=== PATIENT | male | born 1950 | race Caucasian/White ===

== ENCOUNTER 2017-11-16 13:52 | Observation (INO) ==
[2017-11-16] MEDS ORDERED: SALINE FLUSH 10ml SYRINGE IVF PRN (14:00)
[2017-11-16] MEDS ORDERED: NS 1,000 ML IV ONE (15:03)
[2017-11-16] MEDS ORDERED: VANCOMYCIN - PHARMACY CONSULT MC ONE (15:03)
--- NOTE | 2017-11-16 15:08 | Emergency Department Report ---
Weakness HPI - General Chief complaint: Syncope Stated complaint: diabetic issues Time Seen by Provider: 11/16/17 13:59 Source: patient, EMS, RN notes reviewed, old records reviewed Mode of arrival: EMS Limitations: no limitations - History of Present Illness HPI Narrative: 67yo man presented to the ER by EMS today for evaluation of weakness. Pt was at [employer] to shop. As he was leaving [employer], he was unsteady in the scooter , so an employee followed him out to his vehicle. Pt was found sitting in the shade beside his vehicle, too weak to climb into his truck. Pt is a diabetic; has a h/o hypotension 2/2 BP meds. Pt thinks he might have accidentally taken a BP med. He gave himself 6 tabs of glucose, thinking that his BG was low. EMS arrived and pt refused treatment initially. After several steps, pt was finally loaded into the rig and transported to the ER for further eval. Pt has not had anything to eat yet today. Complaint: generalized weakness Onset (ago): hour(s) Duration: constant Location: generalized Migration: none - Related Data Home Medications Medication Instructions Recorded Confirmed Neurontin (gabapentin) 300 mg 600 mg PO QID cap 11/12/17 11/16/17 capsule Ferrous Sulfate [Iron] 650 mg PO DAILY 11/16/17 11/16/17 Insulin Aspart [Novolog Flexpen] 6 - 10 unit SQ TID 11/16/17 11/16/17 Previous Rx's Medication Instructions Recorded Lantus (insulin glargine) 100 18 unit SQ QAM #3 vial 11/12/17 unit/mL SQ Pravastatin Sodium [Pravachol] 40 mg PO HS #0 11/17/17 Allergies Allergy/AdvReac Type Severity Reaction Status Date / Time No Known Allergies Allergy Verified 11/16/17 14:36 Review of Systems All systems: reviewed and negative except as stated Constitutional: Reports: as per HPI, weakness. Denies: fever, chills, weight change, night sweats PFSH Patient Stated Medical History Diabetes Mellitus Type 1 Yes Blood Disorders Yes: MULTIPLE MYOLOMA Clinic Medical History (Last Updated 11/12/17 @ 09:00 by Bryon Perez MD) Diabetic peripheral neuropathy associated with type 2 diabetes mellitus ( Chronic Medical) Severe. Multiple myeloma (Suspected Medical) Diabetes mellitus type 2, uncontrolled, without complications (Chronic Medical ~ 1992) Poor control, but overinsulinized during the night. Will need more bolus insulin and less basal. Proliferative diabetic retinopathy of both eyes without macular edema associated with type 2 diabetes mellitus (Chronic Medical) Hyperlipidemia LDL goal <100 (Chronic Medical) On statin. Hypertension (Chronic Medical) Stopped using lisinopril due to hypotension with syncope. Anemia (Chronic Medical) Surgical History: *Gastric Bypass Surgery - 2009. *Colonoscopy with polypectomy and EGD- 2012 Family History: Family History (Last Updated 11/12/17 @ 08:34 by Tiana Kaur [facility]) Brother Cancer - Social History Smoking status: Former smoker second hand exposure: Yes Substance use type: does not use Alcohol intake: never Alcohol intake frequency: does not drink Current occupational status: retired Physical Exam - Limitations Limitations: no limitations - General General appearance: alert, in no apparent distress, obese - Head Head exam: atraumatic, normocephalic, normal inspection - Eye Eye exam: Present: normal appearance, PERRL, EOMI. Absent: scleral icterus - ENT ENT exam: Present: normal exam, normal oropharynx, mucous membranes moist, normal external ear exam - Neck Neck exam: Present: normal inspection, full ROM, trachea midline. Absent: tenderness, lymphadenopathy - Chest Chest inspection: Present: normal inspection, symmetric chest wall rise. Absent : tenderness, rash - Respiratory Respiratory exam: Present: wheezes. Absent: normal lung sounds bilaterally, respiratory distress, stridor, prolonged expiratory phase, crackles - Cardiovascular Cardiovascular exam: Present: regular rate, normal rhythm, normal heart sounds. Absent: rubs, gallop, clicks - Abdominal Exam Abdominal exam: Present: soft, normal bowel sounds. Absent: distention, tenderness, guarding, rebound, rigidity - Extremities Exam Extremities exam: Present: normal inspection, full ROM, normal capillary refill. Absent: tenderness, pedal edema - Skin Skin exam: Present: warm, dry, intact, diaphoresis. Absent: rash - Neurological Exam Neurological exam: Present: alert, oriented X3, CN II-XII intact, reflexes normal, other (Pt appears confused; possibly slow on exam; EMS confirmed that pt has been acting similarly since they arrived.) - Psychiatric Psychiatric exam: Present: agitated, anxious Course - Consultations Consultation #1: Hospitalist: Pt accepted for obs admission for BG abns and elevated lactate with orthostatic hypotension. Time: 16:00 Vital Signs Pulse Rate 72 11/16/17 13:58 Respiratory Rate 20 11/16/17 13:58 Blood Pressure 90/55 11/16/17 13:58 Pulse Oximetry 97 11/16/17 13:58 Pulse Rate 85 11/16/17 14:53 Respiratory Rate 20 11/16/17 14:43 Blood Pressure 123/63 11/16/17 14:55 Pulse Oximetry 94 11/16/17 14:45 Weakness - Differential Diagnosis Differential diagnosis: Likely: anemia, hypoglycemia, hypothyroidism, dehydration - Medical Records Attestation: I reviewed the patient's medical records. - Lab Data Attestation: I reviewed the patient's lab results. Result diagrams: 11/17/17 03:40 11/17/17 03:40 Lab Results 11/16/17 11/16/17 11/16/17 Range/Units 14:16 14:16 14:23 WBC 8.2 (4.5-11.0) T/MM3 RBC 4.19 L (4.50-5.90) M/MM3 Hgb 11.1 L (13.5-17.5) GM/DL Hct 34.3 L (41-53) % MCV 81.9 (80-100) UM3 MCH 26.5 (26-34) UUG MCHC 32.4 (31-37) GM/DL RDW Std Deviation 39.3 (36.9-50.2) FL Plt Count 403 H (130-400) T/MM3 MPV 9.7 (9.4-12.4) UM3 Immature Gran % (Auto) 0.1 (0.0-0.5) % Neut % (Auto) 65.9 (33-66) % Lymph % (Auto) 23.0 (23-45) % Williams % (Auto) 9.3 H (0-9.0) % Eos % (Auto) 1.0 (0-4) % Baso % (Auto) 0.7 (0-2) % Neut # (Auto) 5.4 (1.8-7.7) T/MM3 Lymph # (Auto) 1.9 (1-4.8) T/MM3 Williams # (Auto) 0.8 (0-0.8) T/MM3 Eos # (Auto) 0.1 (0-0.5) T/MM3 Baso # (Auto) 0.1 (0-0.2) T/MM3 Abs Immat Gran (auto) 0.01 (0.00-0.03) T/MM3 Turbidity < 20 (0-20) Sodium 139 (136-146) MEQ/L Potassium 4.1 (3.6-5) MEQ/L Chloride 99 (98-107) MEQ/L Carbon Dioxide 21 L (22-30) MEQ/L Anion Gap 19 H (5-15) meq/L BUN 20.0 (9-20) MG/DL Creatinine 1.0 (0.8-1.5) mg/dL GFR Calculation 75 BUN/Creatinine Ratio 20 (6-26) RATIO Glucose 323 H (75-110) MG/DL Glucometer 247 (65-110) mg/dL Calculated Osmolality 283 H (261-280) MOSM/KG Calcium 9.6 (8.4-10.2) MG/DL Total Bilirubin 0.70 (0.20-1.30) MG/DL Icterus Index < 2 (0-7) AST 26 (17-59) U/L ALT 30 (1-50) U/L Alkaline Phosphatase 121 (38-126) U/L Troponin I < 0.012 (0-0.12) ng/ml Total Protein 7.9 (6.3-8.2) g/dL Albumin 4.4 (3.5-5.0) g/dL Globulin 3.5 (2.4-3.6) G/DL Albumin/Globulin Ratio 1.3 (1.1-2.2) RATIO Plasma Lactate 5.8 H* (0.6-2.2) MMOL/L Specimen Hemolysis < 15 (0-25) - Radiology Data Attestation: I reviewed the patient's radiology results. CXR: No acute CT pathology. - EKG Data EKG #1 EKG attestation: Yes: I reviewed and interpreted this EKG. EKG shows normal: sinus rhythm, axis, QRS complexes, ST-T waves Rate: normal Coker/QRS: RBBB Disposition Clinical Impression: Syncope due to orthostatic hypotension Sepsis Qualifiers: Sepsis type: sepsis due to unspecified organism Qualified Code(s): A41.9 - Sepsis, unspecified organism Disposition: 02 [place] [facility] [place] Care Condition: Stable - Seen By: physician
[2017-11-16 16:56] VITALS: BMI 28.0
[2017-11-16] MEDS ORDERED: SENNA + DOCUSATE TABLET PO PRN (17:00)
[2017-11-16] MEDS ORDERED: ONDANSETRON 4 MG/2 ML INJECTION IVP PRN (17:00)
[2017-11-16] MEDS ORDERED: ACETAMINOPHEN 325 MG TABLET PO PRN (17:00)
[2017-11-16] MEDS ORDERED: GLUCOSE ORAL GEL 40% 37.5gm PO PRN (17:04)
[2017-11-16] MEDS ORDERED: INSULIN ASPART 100unit/ml INJECTION SQ PRN (17:04)
[2017-11-16] MEDS ORDERED: NON-FORMULARY MEDICATION 1 EACH EACH (Insulin Aspart [Novolog Flexpen] 0 UNIT) SQ SCH (17:30)
[2017-11-16] MEDS: NS 1,000 ML IV SCH (17:50)
[2017-11-16] MEDS: INSULIN ASPART 100unit/ml INJECTION SQ SCH (18:06)
--- NOTE | 2017-11-16 18:08 | History & Physical Report ---
History of Present Illness Date: 11/16/17 Chief complaint: orthostatic hypotension, generalized weakness HPI: Luis Enrique Curtis is a pleasant 67-year-old male patient of Dr. Fountain who was brought to [facility] ED today, 11/16/17, via EMS for evaluation of generalized weakness. He reports that this morning he took his scheduled insulin including Lantus 18 units as well as 10 units of Novolog as directed by Dr. Bryon Perez, endocrinology, but then forgot to eat breakfast. Prior to taking his medications, his fasting blood sugar was reportedly elevated at 538. He then went to [facility] where he checked his blood sugar again and found that it was still around 400 so he took an additional 5 units of Novolog around 0900. As he was leaving [facility] an employee noticed that he appeared unsteady on his scooter and followed him out to his truck where he was found sitting in the shade, on the ground, beside his truck, reportedly too weak to climb into his truck. Luis Enrique reports that he thought maybe his blood sugar was too low so he took 6-7 glucose tabs while sitting in the parking lot. EMS was contacted and initially Luis Enrique refused treatment but then consented after receiving apple juice. After further discussion, he reports that he thinks that he might have messed up his medications this morning as he took them in the dark while he was only half-awake around 0600 this morning. He believes that he might have taken 2 of his metformin tablets instead of only 1 as well as possibly have taken one of his old blood pressure medications by accident. He reports that about 3 months ago he had a syncopal episode while in [place] for business. He reports that he was hospitalized in [place] at that time and had "all the tests" which reportedly did not reveal any abnormalities with his heart. He was subsequently taken off his two blood pressure medications at that time. He is unable to recall what the medications were. He also reports that while he was in [place] his labs were concerning for possible multiple myeloma. He was seen by Dr. 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 He continues to follow with Dr. Lewis for multiple myeloma but is not currently requiring treatment. Upon arrival to the ED, his blood pressure was 90/55. He was given 1L NS. Labs revealed stable WBC at 8.2 with chronic anemia (Hgb 11.1) and thrombocytosis (Plt 403). Electrolytes were unremarkable with the exception of hyperglycemia (Glu 323). Troponin <0.012. Lactate was significantly elevated at 5.8 with a gap of 19 and CO2 of 21. Blood pressure improved with IV fluids. Orthostatic blood pressures shortly after arrival to the ED were positive (supine 113/71, sitting 99/61, standing 77/51). Due to his orthostatic hypotension, hyperglycemia and elevated lactate, Dr. Mendoza was consulted and he was admitted into observation status for further evaluation , close monitoring and IV fluids. His length of stay is not expected to exceed more than 2 over nights. Prior to discharge from the ED, he was given vancomycin IV x 1 dose for empiric treatment of any possible infection resulting in his elevated lactate. Blood pressure also significantly improved following 1L bolus of NS at 150/87 while in the ED. On exam, he is seen immediately upon his arrival to his room. He is very pleasant and actively talking on his phone with his brother. He denies any recent illness, fevers, chills, chest pain, shortness of breath, abdominal pain , nausea, vomiting or dysuria. He reports that he feels much better and believes that his medication errors caused his symptoms. He is eager for discharge home. Repeat orthostatic vital signs were negative. Review of Systems All systems PM: 10-point ROS was reviewed, no additional remarkable complaints except - Constitutional Constitutional: Present: weakness (generalized). Absent: anorexia, chills, fatigue, fever(s), headache(s) - EEMTT Eyes: Absent: diplopia, loss of vision, photophobia Ears: Absent: ear pain Balance: Absent: falling to one side Nose: Present: allergies. Absent: nosebleeds Mouth/Throat: Present: dry mouth. Absent: sore throat, changes in swallowing - Cardiovascular Cardiovascular: Absent: chest pain, palpitations, syncope, dyspnea on exertion, orthopnea, edema, heart murmur Rhythm: Present: regular rhythm Vascular: Absent: pallor of an extermity, pedal edema, unilateral swelling - Respiratory Respiratory: Absent: cough, dyspnea, hemoptysis, dyspnea on exertion, wheezing, pain on inspiration - Gastrointestinal Gastrointestinal: Absent: abdominal pain, constipation, diarrhea, hematochezia, melena, nausea, vomiting - Genitourinary Genitourinary: Present: nocturia. Absent: dysuria, flank pain, hematuria - Musculoskeletal Musculoskeletal: Present: muscle weakness (generalized). Absent: abnormal gait , back pain, deformity, limited range of motion - Integumentary/Breasts Integumentary: Absent: rash - Neurological Neurological: Present: sensory deficit (bilateral lower extremities), weakness. Absent: abnormal gait, abnormal speech, confusion, focal weakness, headache(s) , vertigo - Psychiatric Psychiatric: Absent: anxiety, depression - Endocrine Endocrine: Absent: heat intolerance, palpitations - Hematologic/Lymphatic Hematologic/Lymphatic: Absent: easy bruising - Allergic/Immunologic Allergic/Immunologic: Present: seasonal rhinorrhea Past Medical History Medical History: Medical History (Last Updated 11/16/17 @ 18:10 by BARBI Blair) Diabetic peripheral neuropathy associated with type 2 diabetes mellitus (Chronic ) Severe. Multiple myeloma (Suspected) Diabetes mellitus type 2, uncontrolled, without complications (Chronic) Onset Date: ~1992 Poor control, but overinsulinized during the night. Will need more bolus insulin and less basal. Proliferative diabetic retinopathy of both eyes without macular edema associated with type 2 diabetes mellitus (Chronic) Hyperlipidemia LDL goal <100 (Chronic) On statin. Hypertension (Chronic) Stopped using lisinopril due to hypotension with syncope. Anemia (Chronic) Surgical History: *Gastric Bypass Surgery - 2009. *Colonoscopy with polypectomy and EGD- 2012. *Bone marrow biopsy - 10/23/17. Family History: Family History Brother , age 58, pancreatic cancer. Mother , age 88, "old age". Father , age 82, kidney infection. Family History: As Above - Social History Smoking status: Former smoker (quit in 1989) Packs per day: 3 Packs-years: 60 Substance use type: does not use Alcohol intake frequency: does not drink Housing: house Household members: family (brother) Current occupational status: retired (tank truck driver) Does patient use chewing tobacco?: Yes (daily) Current residence: Apartment/Private Home Social history: PCP - Dr. Fountain. Endo - Dr. Perez. Onc - Dr. Lewis. Medications Home Medications Medication Instructions Recorded Confirmed Type Foramet (metformin ER) 1,000 mg 1,000 mg PO BID tab 10/21/17 11/16/17 History tablet,extended release 24hr Lantus (insulin glargine) 100 18 unit SQ QAM #3 vial 11/12/17 11/16/17 Rx unit/mL SQ Neurontin (gabapentin) 300 mg 600 mg PO QID cap 11/12/17 11/16/17 History capsule Pravachol (pravastatin) 40 mg 40 mg PO DAILY 11/12/17 11/16/17 History tablet Ferrous Sulfate [Iron] 650 mg PO DAILY 11/16/17 11/16/17 History Insulin Aspart [Novolog Flexpen] 6 - 10 unit SQ TID 11/16/17 11/16/17 History Allergies Allergy/AdvReac Type Severity Reaction Status Date / Time No Known Allergies Allergy Verified 11/16/17 14:36 Exam Vital Signs: Temperature 96.3 F L 11/16/17 16:47 Pulse Rate 89 11/16/17 17:23 Respiratory Rate 20 11/16/17 16:47 Blood Pressure 155/71 H 11/16/17 17:23 Pulse Oximetry 100 11/16/17 16:47 Telemetry Rhythm: Sinus Rhythm Height/Weight/BMI: Height 6 ft Weight 207 lb 3.752 oz Body Mass Index 28.0 Comments: Patient sitting on bed, talking on phone with brother. Very pleasant. - Constitutional Present: no acute distress, well nourished, well developed, cooperative - Routine HEENT Exam Head: Present: normocephalic, atraumatic Eye: Present: PERRL. Absent: conjunctival icterus ENT: Present: mucous membranes moist, oropharynx clear - Routine Neck Exam Present: supple, full ROM, trachea midline - Routine Chest/Breast/Axilla Exam Chest wall: Absent: pacemaker - Routine Respiratory Exam Present: CTA bilaterally. Absent: respiratory distress, wheezes - Routine Cardiovascular Exam Present: RRR, S1, S2 - Routine Abdominal Exam Present: soft, normoactive bowel sounds, non distended - Routine Extremities Exam Present: no edema, non tender, full ROM, pulses intact - Routine Back/Spine/Pelvis Exam Back/Spine: Present: full ROM. Absent: vertebral tenderness - Routine Skin Exam Present: intact, dry, warm Comments: Afebrile. - Routine Neurological Exam Present: alert, oriented X3, CN II-XII intact, sensory deficit (bilateral lower extremities secondary to peripheral neuropathy.), moving all extremities, hearing grossly intact, normal speech - Routine Psychiatric Exam Present: normal affect, cooperative Results - Labs CBC & Chem 7: 11/16/17 14:16 11/16/17 14:16 Assessment and Plan Assessment and Plan: Assessment: Orthostatic hypotension. Lactic acidosis, present on admission (5.8), without signs of infection. Diabetes mellitus, type 2, uncontrolled. Diabetic peripheral neuropathy. Multiple myeloma. Hyperlipidemia. Hypertension. Chronic anemia. Chronic thrombocytosis. Plan - 11/16/17: Admit to observation status under the care of Dr. Mendoza and the hospitalist service. Patient was orthostatic in ED upon arrival. Following 1 L NS bolus, orthostatic hypotension resolved. Continue to monitor orthostatic pressures closely. Patient is a high fall risk. Lactate elevated upon admission. No signs of infection. UA unremarkable. Afebrile. Most likely secondary to home metformin and likelihood that the patient took twice as much metformin this morning accidently. Monitor serial lactic acids. NS 100cc/hr for hydration. Hyperglycemia noted on admission. Patient admits to taking 6-7 glucose tabs prior to evaluation by EMS at which time he also had apple juice. Continue to monitor blood sugars closely. Patient was seen by Dr. Perez as outpatient on 11/12/17 and updated medication changes were reviewed. He was noted to be overinsulinizing during the night. Dr. Perez increased his bolus insulin and decreased his basal insulin - Humalog 9-10 units WM TID, Lantus 18 units QAM. Will continue home insulin dosing and monitor closely. Will continue home medications. Patient was given 1 dose vancomycin while in ED. As patient has not signs of infection and lactic acidosis is most likely secondary to metformin, will discontinue vancomycin as no antibiotic treatment is indicated at this time. TSH on 11/12/17 was 0.57 - patient to follow up with Dr. Perez as an outpatient. Will recheck labs in AM to monitor blood counts, electrolytes and renal function. Upon discharge, patient's care will be returned to his PCP, Dr. Fountain. DVT Prophylaxis: SCD's Resuscitation Status: Full Code - Time spent with patient Time with patient PN: 70 minutes - Physician Narrative Physician: Doug Mendoza MD Narrative: Date: 11/16/17 Time: 1840 I have independently evaluated and examined this patient. I reviewed the chart, the patient's history, and the FIRST AID DIRECTOR/PA's documented findings as above. 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 Patient thought he was hypoglycemic and took 6-7 glucose tabs. EMS got blood sugar > 300. Patient's BP was low on arrival to ER. He was reportedly orthostatic. He got 1L IVF. His lactate was elevated at 5.8. He is on metformin. He is unsure what meds he took today, and that seems to be an ongoing issue. NAD. CTAB. RRR. s/nt/nd +bs. No c/c/e. CN II-XII grossly intact. Metformin has been dc'd. Monitor lactate. Continue Lantus/Novolog with correction insulin. Continue gabapentin for his neuropathy. Start ASA. Unclear whether patient can care for himself. May need home safety eval. Hospital Course Summary Disclaimer: The visit summary below is not to be considered part of the above Progress Note. Hospital Course: Plan - 11/16/17: Admit to observation status under the care of Dr. Mendoza and the hospitalist service. Patient was orthostatic in ED upon arrival. Following 1 L NS bolus, orthostatic hypotension resolved. Continue to monitor orthostatic pressures closely. Patient is a high fall risk. Lactate elevated upon admission. No signs of infection. UA unremarkable. Afebrile. Most likely secondary to home metformin and likelihood that the patient took twice as much metformin this morning accidently. Monitor serial lactic acids. NS 100cc/hr for hydration. Hyperglycemia noted on admission. Patient admits to taking 6-7 glucose tabs prior to evaluation by EMS at which time he also had apple juice. Continue to monitor blood sugars closely. Patient was seen by Dr. Perez as outpatient on 11/12/17 and updated medication changes were reviewed. He was noted to be overinsulinizing during the night. Dr. Perez increased his bolus insulin and decreased his basal insulin - Humalog 9-10 units WM TID, Lantus 18 units QAM. Will continue home insulin dosing and monitor closely. Will continue home medications. Patient was given 1 dose vancomycin while in ED. As patient has not signs of infection and lactic acidosis is most likely secondary to metformin, will discontinue vancomycin as no antibiotic treatment is indicated at this time. TSH on 11/12/17 was 0.57 - patient to follow up with Dr. Perez as an outpatient. Will recheck labs in AM to monitor blood counts, electrolytes and renal function. Upon discharge, patient's care will be returned to his PCP, Dr. Fountain.
[2017-11-16] MEDS: NICOTINE 21 MG PATCH TD SCH (20:26)
[2017-11-16] MEDS ORDERED: GABAPENTIN 300 MG CAPSULE PO SCH (21:00)
[2017-11-17 00:06] VITALS: TEMP 96.4
[2017-11-17] MEDS: NS 1,000 ML IV SCH (04:00)
--- NOTE | 2017-11-17 07:54 | XRay Report ---
Indication: Hypotension PROCEDURE: XR chest 1V: Encounter: Initial Comparison: None FINDINGS: Mild emphysema. Evidence of old granulomatous disease. The lungs are otherwise clear. There is no abnormal airspace opacity, pleural effusion or pneumothorax identified. The heart size, pulmonary vasculature and mediastinum are within normal limits. No significant skeletal abnormality is seen. IMPRESSION: No acute cardiopulmonary abnormality. .
[2017-11-17] MEDS ORDERED: FERROUS SULFATE 324 MG TABLET PO SCH (08:00)
[2017-11-17 08:06] VITALS: O2SAT 100
[2017-11-17] MEDS: NICOTINE 21 MG PATCH TD SCH (08:19)
[2017-11-17] MEDS: INSULIN ASPART 100unit/ml INJECTION SQ SCH (08:20)
[2017-11-17] MEDS ORDERED: INSULIN GLARGINE 100unit/ml INJECTION SQ SCH (09:00)
[2017-11-17] MEDS ORDERED: NICOTINE PATCH REMOVAL TD SCH (09:00)
[2017-11-17] MEDS ORDERED: POLYETHYL GLYCOL 3350 17gm PACKET PO SCH (09:00)
[2017-11-17] MEDS ORDERED: GABAPENTIN 600 MG TABLET PO SCH (09:00)
--- NOTE | 2017-11-17 12:01 | Progress Note ---
- Date 11/17/17 Subjective: F/U: Orthostatic hypotension, Lactic acidosis, present on admission (5.8), without signs of infection. Doing much better today-able to be up and ambulatory without difficulty. Not feeling dizzy or unsteady with positional changes. No chest pressure or pain. Breathing well without SOA or cough/congestion. Eating well. Urinating well. Bowels stable. No f/c. Strength much improved. Mentation normal. Feels ready to go home. Objective Vital signs: Temperature 96.4 F L 11/17/17 00:05 Pulse Rate 68 11/17/17 08:04 Respiratory Rate 16 11/17/17 08:04 Blood Pressure 156/93 H 11/17/17 08:04 Pulse Oximetry 100 11/17/17 08:04 Height/Weight/BMI: Height 1.83 m Weight 93.1 kg Body Mass Index 28.0 - Constitutional Present: no acute distress, well nourished, well developed, average body habitus , cooperative. Absent: combative, agitated, somnolent, obtunded - Routine HEENT Exam Head: Present: normocephalic, atraumatic Eye: Present: EOMI, PERRL ENT: Present: mucous membranes moist - Routine Respiratory Exam Present: CTA bilaterally. Absent: rales, respiratory distress, rhonchi, stridor , wheezes - Routine Cardiovascular Exam Present: RRR, no murmur - Routine Abdominal Exam Present: soft, normoactive bowel sounds, non distended, non tender. Absent: guarding - Routine Extremities Exam Present: no edema, pulses intact. Absent: cyanosis, clubbing - Routine Musculoskeletal Exam Musculoskeletal: Present: no clubbing or cyanosis, normal strength - Routine Skin Exam Present: intact, dry, warm - Routine Neurological Exam Present: alert, oriented X3, CN II-XII intact, moving all extremities, vision grossly intact, hearing grossly intact, normal speech. Absent: motor deficit, altered mental status - Routine Psychiatric Exam Present: normal affect, normal thought process, cooperative Results - Labs CBC & Chem 7: 11/17/17 03:40 11/17/17 03:40 Assessment and Plan Assessment and Plan: Assessment Orthostatic hypotension Lactic acidosis, present on admission (5.8), without signs of infection Diabetes mellitus, type 2, uncontrolled Diabetic peripheral neuropathy Multiple myeloma Hyperlipidemia Hypertension Chronic anemia Chronic thrombocytosis Tobacco dependency - chewing tobacco Plan Clinically improved. Ambulating well. Strength normalized. Eating well. No orthostasis. Feels ready for discharge. Will discharge to home. STOP metformin due to lactic acidosis. Continue with prior medications. Encourage fluid intake, eating regularly, and monitoring blood sugars. Can follow up with Dr Perez about possible insulin pump. F/U with Dr Fountain in 1 week for medical evaluation. See orders for details. Case discussed with CM and nursing. Time spent with pt care and discharge greater than 30 minutes. DVT Prophylaxis: SCD's Resuscitation Status: Full Code - Physician Narrative Physician: Wm Garcia MD Narrative: Date: 11/17/17 Time: 1158 Hospital Course Summary Disclaimer: The visit summary below is not to be considered part of the above Progress Note. Hospital Course: 11/16/17 Admit to observation status under the care of Dr. Mendoza and the hospitalist service. Patient was orthostatic in ED upon arrival. Following 1 L NS bolus, orthostatic hypotension resolved. Continue to monitor orthostatic pressures closely. Patient is a high fall risk. Lactate elevated upon admission. No signs of infection. UA unremarkable. Afebrile. Most likely secondary to home metformin and likelihood that the patient took twice as much metformin this morning accidently. Monitor serial lactic acids. NS 100cc/hr for hydration. Hyperglycemia noted on admission. Patient admits to taking 6-7 glucose tabs prior to evaluation by EMS at which time he also had apple juice. Continue to monitor blood sugars closely. Patient was seen by Dr. Perez as outpatient on 11/12/17 and updated medication changes were reviewed. He was noted to be overinsulinizing during the night. Dr. Perez increased his bolus insulin and decreased his basal insulin - Humalog 9-10 units WM TID, Lantus 18 units QAM. Will continue home insulin dosing and monitor closely. Will continue home medications. Patient was given 1 dose vancomycin while in ED. As patient has not signs of infection and lactic acidosis is most likely secondary to metformin, will discontinue vancomycin as no antibiotic treatment is indicated at this time. TSH on 11/12/17 was 0.57 - patient to follow up with Dr. Perez as an outpatient. Will recheck labs in AM to monitor blood counts, electrolytes and renal function. Upon discharge, patient's care will be returned to his PCP, Dr. Fountain. 11/17/17 Clinically improved. Ambulating well. Strength normalized. Eating well. No orthostasis. Feels ready for discharge. Will discharge to home. STOP metformin due to lactic acidosis. Continue with prior medications. Encourage fluid intake, eating regularly, and monitoring blood sugars. Can follow up with Dr Perez about possible insulin pump. F/U with Dr Fountain in 1 week for medical evaluation. See orders for details.
[2017-11-17 12:04] VITALS: BP 126/77; PULSE 63; RESP 12
--- NOTE | 2017-11-17 16:59 | Discharge Summary ---
Discharge Information Date of admission: 11/16/17 16:13 Anticipated date of discharge: 11/17/17 Attending Physician: Wm Garcia MD Primary care physician: Obdulio Fountain MD Discharge diagnosis Orthostatic hypotension Associated conditions and complications Lactic acidosis, present on admission (5.8), without signs of infection Most likely secondary to metformin use Diabetes mellitus, type 2, uncontrolled Diabetic peripheral neuropathy Multiple myeloma Hyperlipidemia Hypertension Chronic anemia Chronic thrombocytosis Tobacco dependency - chewing tobacco - Laboratory Labs: Admit Lab 11/16/17 14:16 WBC 8.2 Hgb 11.1 L Hct 34.3 L MCV 81.9 Plt Count 403 H Neut % (Auto) 65.9 Lymph % (Auto) 23.0 [place] % (Auto) 9.3 H Eos % (Auto) 1.0 Baso % (Auto) 0.7 Admit Lab 11/16/17 14:16 Sodium 139 Potassium 4.1 Chloride 99 Carbon Dioxide 21 L Anion Gap 19 H BUN 20.0 Creatinine 1.0 GFR Calculation 75 Glucose 323 H Calculated Osmolality 283 H Calcium 9.6 Total Bilirubin 0.70 AST 26 ALT 30 Alkaline Phosphatase 121 Troponin I < 0.012 Total Protein 7.9 Albumin 4.4 Globulin 3.5 Albumin/Globulin Ratio 1.3 Plasma Lactate 5.8 H* 11/17/17 03:40 11/17/17 03:40 - Radiology Radiology: Date of Exam: 11/16/17 Type of Exam: XR chest 1V FINDINGS: Mild emphysema. Evidence of old granulomatous disease. The lungs are otherwise clear. There is no abnormal airspace opacity, pleural effusion or pneumothorax identified. The heart size, pulmonary vasculature and mediastinum are within normal limits. No significant skeletal abnormality is seen. IMPRESSION: No acute cardiopulmonary abnormality. History of Present Illness HPI: Luis Enrique Curtis is a pleasant 67-year-old male patient of Dr. Fountain who was brought to [facility] ED today, 11/16/17, via EMS for evaluation of generalized weakness. He reports that this morning he took his scheduled insulin including Lantus 18 units as well as 10 units of Novolog as directed by Dr. Bryon Perez, endocrinology, but then forgot to eat breakfast. Prior to taking his medications, his fasting blood sugar was reportedly elevated at 538. He then went to [facility] where he checked his blood sugar again and found that it was still around 400 so he took an additional 5 units of Novolog around 0900. As he was leaving [facility] an employee noticed that he appeared unsteady on his scooter and followed him out to his truck where he was found sitting in the shade, on the ground, beside his truck, reportedly too weak to climb into his truck. Luis Enrique reports that he thought maybe his blood sugar was too low so he took 6-7 glucose tabs while sitting in the parking lot. EMS was contacted and initially Luis Enrique refused treatment but then consented after receiving apple juice. After further discussion, he reports that he thinks that he might have messed up his medications this morning as he took them in the dark while he was only half-awake around 0600 this morning. He believes that he might have taken 2 of his metformin tablets instead of only 1 as well as possibly have taken one of his old blood pressure medications by accident. He reports that about 3 months ago he had a syncopal episode while in [place] for business. He reports that he was hospitalized in [place] at that time and had "all the tests" which reportedly did not reveal any abnormalities with his heart. He was subsequently taken off his two blood pressure medications at that time. He is unable to recall what the medications were. He also reports that while he was in [place] his labs were concerning for possible multiple myeloma. He was seen by Dr. 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 He continues to follow with Dr. Lewis for multiple myeloma but is not currently requiring treatment. Upon arrival to the ED, his blood pressure was 90/55. He was given 1L NS. Labs revealed stable WBC at 8.2 with chronic anemia (Hgb 11.1) and thrombocytosis (Plt 403). Electrolytes were unremarkable with the exception of hyperglycemia (Glu 323). Troponin <0.012. Lactate was significantly elevated at 5.8 with a gap of 19 and CO2 of 21. Blood pressure improved with IV fluids. Orthostatic blood pressures shortly after arrival to the ED were positive (supine 113/71, sitting 99/61, standing 77/51). Due to his orthostatic hypotension, hyperglycemia and elevated lactate, Dr. Mendoza was consulted and he was admitted into observation status for further evaluation , close monitoring and IV fluids. His length of stay is not expected to exceed more than 2 over nights. Prior to discharge from the ED, he was given vancomycin IV x 1 dose for empiric treatment of any possible infection resulting in his elevated lactate. Blood pressure also significantly improved following 1L bolus of NS at 150/87 while in the ED. On exam, he is seen immediately upon his arrival to his room. He is very pleasant and actively talking on his phone with his brother. He denies any recent illness, fevers, chills, chest pain, shortness of breath, abdominal pain , nausea, vomiting or dysuria. He reports that he feels much better and believes that his medication errors caused his symptoms. He is eager for discharge home. Repeat orthostatic vital signs were negative. For complete details of the H&P refer to that document. Objective Vital signs: Temperature 96.4 F L 11/17/17 00:05 Pulse Rate 63 11/17/17 12:02 Respiratory Rate 12 11/17/17 12:02 Blood Pressure 126/77 11/17/17 12:02 Pulse Oximetry 100 11/17/17 12:02 Height/Weight/BMI: Height 1.83 m Weight 93.1 kg Body Mass Index 28.0 Hospital Course This is a general summary of the patient's hospital course. For more details refer to the complete medical record. Hospital course: 11/16/17 Admit to observation status under the care of Dr. Mendoza and the hospitalist service. Patient was orthostatic in ED upon arrival. Following 1 L NS bolus, orthostatic hypotension resolved. Continue to monitor orthostatic pressures closely. Patient is a high fall risk. Lactate elevated upon admission. No signs of infection. UA unremarkable. Afebrile. Most likely secondary to home metformin and likelihood that the patient took twice as much metformin this morning accidently. Monitor serial lactic acids. NS 100cc/hr for hydration. Hyperglycemia noted on admission. Patient admits to taking 6-7 glucose tabs prior to evaluation by EMS at which time he also had apple juice. Continue to monitor blood sugars closely. Patient was seen by Dr. Perez as outpatient on 11/12/17 and updated medication changes were reviewed. He was noted to be overinsulinizing during the night. Dr. Perez increased his bolus insulin and decreased his basal insulin - Humalog 9-10 units WM TID, Lantus 18 units QAM. Will continue home insulin dosing and monitor closely. Will continue home medications. Patient was given 1 dose vancomycin while in ED. As patient has not signs of infection and lactic acidosis is most likely secondary to metformin, will discontinue vancomycin as no antibiotic treatment is indicated at this time. TSH on 11/12/17 was 0.57 - patient to follow up with Dr. Perez as an outpatient. Will recheck labs in AM to monitor blood counts, electrolytes and renal function. Upon discharge, patient's care will be returned to his PCP, Dr. Fountain. 11/17/17 Clinically improved. Ambulating well. Strength normalized. Eating well. No orthostasis. Feels ready for discharge. Will discharge to home. STOP metformin due to lactic acidosis. Continue with prior medications. Encourage fluid intake, eating regularly, and monitoring blood sugars. Can follow up with Dr Perez about possible insulin pump. F/U with Dr Fountain in 1 week for medical evaluation. See orders for details. Time spent with patient: discharge greater than 30 minutes Resuscitation Status: Full Code Discharge Plan - Discharge Disposition Discharge Date: 11/17/17 Disposition: Discharged Home, Self-Care *Condition: Stable Reason For Visit (Visit label in EMR): orthostasis,hypotension - Discharge Medications *Discharge Medications: Continue Ferrous Sulfate [Iron] 650 mg PO DAILY Insulin Aspart [Novolog Flexpen] 6 - 10 unit SQ TID Neurontin (gabapentin) 300 mg capsule 600 mg PO QID cap Lantus (insulin glargine) 100 unit/mL SQ 18 unit SQ QAM #3 vial Changed Pravastatin Sodium [Pravachol] 40 mg PO HS #0 Discontinued Foramet (metformin ER) 1,000 mg tablet,extended release 24hr 1,000 mg PO BID tab - Discharge Packet/Instructions *Diet: 2000 KCAL ADA, plently of fluids *Activity: As tolerated *Pain Management/Treatment: Continue prior home pain medications *Wound Care: N/A *Expected Signs/Symptoms: Improvement of blood sugar control. *Notify Physician if: Temp >100.4. Unsteadiness with postional changes. Difficuly controlling blood sugars. *During Business Hours Contact: Dr Fountain or Dr Perez *After Business Hours Contact: Call [facility] and have your care provider contacted. *Pending Lab/Results: No Pending Lab - Referrals/Follow Up *Referrals/Follow Up: Obdulio Fountain MD [Primary Care Provider] - 1 Week (Hospital follow up - orthostatic hypotension (hypoglycemia; elevated lactic acid secondary to metformin) appointment on 12/02 at 10am.) Bryon Perez MD [Physician] - (As scheduled - could call to make earlier apt to discuss insultin pump. ) - Patient Handouts Patient Handouts: Diabetic Gastroparesis (IP), Syncope (DC) - Dismissal Complete Discharge Instructions are:: Complete Physician Narrative - Narrative Physician: Wm Garcia MD Attestation Narrative: Date: 11/17/17 Time: 7063
== END 2017-11-17 13:00 | disposition home or self-care (01) ==
LOC: ED 13:52 → EDHOLD 13:52 → SUATTDRO 16:13 → MED 16:50
PROVIDERS: ADMIT Hospitalist; ATTEND Hospitalist